=== PATIENT | female | born 1985 | race Caucasian/White ===

== ENCOUNTER 2025-04-13 09:36 | Emergency (ER) | payer OTHER ==
[~2025-04-13] VITALS: Ht 165.1 cm; Wt 72.6 kg
[~2025-04-13 09:36] MED LIST: AMOXICILLIN500 M2 PO; ATIVAN0.5 MG PO; BENADRYL25 M2 PO; MOTRIN800 MG PO; OXYCODONE/APAP1 TA5 PO; VIBRAMYCIN100 MG PO
== END 2025-04-13 11:40 | disposition home or self-care (01) ==
LOC: ED → EDBD 09:42 → ED 11:40
DX: S80.11XA Contusion of right lower leg, initial encounter (principal); Z86.711 Personal history of pulmonary embolism; Z90.49 Acquired absence of other specified parts of digestive tract; Z88.5 Allergy status to narcotic agent; Z91.040 Latex allergy status; W07.XXXA Fall from chair, initial encounter; Y93.89 Activity, other specified; Y92.89 Other specified places as the place of occurrence of the external cause; Y99.8 Other external cause status